=== PATIENT | female | born 1995 | race Caucasian/White ===

== ENCOUNTER 2016-09-11 07:02 | Day surgery (SDC) | payer OTHER ==
[2016-09-11 07:50] LABS: HEMOGLOBIN 13.5 gm/dl (12.3-15.3); RED BLOOD COUNT 4.47 M/UL (4.00-5.10); WHITE BLOOD COUNT 9.3 K/UL (4.5-11.0)
[2016-09-11] MEDS ORDERED: COLACE 100MG C100 MG PO (14:16)
[2016-09-11] MEDS ORDERED: NORCO 5-325 TA1 EACH PO (14:17)
[2016-09-11] MEDS ORDERED: IBUPROFEN600 MG PO (14:18)
== END 2016-09-11 14:33 | disposition home or self-care (01) ==
LOC: MED SURG 4 07:02 → OR 07:02 → MED SURG 4 07:27 → ZOBSOF 07:27 → MED SURG 4 07:27 → OR 14:33 → MED SURG 4 14:33 → EDSTATUS 09-13 10:04
PROVIDERS: Obstetrics & Gynecology
PROC: 10D17ZZ Extraction of Products of Conception, Retained, Via Natural or Artificial Opening (ICD-10-PCS; principal; 2016-09-11 10:00)
DX: O02.1 Missed abortion (principal); E66.9 Obesity, unspecified; Z98.818 Other dental procedure status; Z90.49 Acquired absence of other specified parts of digestive tract; Z80.9 Family history of malignant neoplasm, unspecified; Z83.49 Family history of other endocrine, nutritional and metabolic diseases; Z82.49 Family history of ischemic heart disease and other diseases of the circulatory system; Z83.3 Family history of diabetes mellitus; Z80.1 Family history of malignant neoplasm of trachea, bronchus and lung
CPT/HCPCS: 0; 36415; 81001; 85025; G0378; G0379; J1100; J1885; J2250; J2405; J2795; J3010; J7030

== ENCOUNTER 2020-08-12 17:06 | Emergency (ER) | payer BC, OTHER ==
[~2020-08-12 17:06] MED LIST: COLACE 100MG C100 MG PO; IBUPROFEN600 MG PO; NORCO 5-325 TA1 EACH PO
== END 2020-08-12 22:15 | disposition home or self-care (01) ==
LOC: ER1 17:06
DX: O99.891 Other specified diseases and conditions complicating pregnancy (principal); M79.661 Pain in right lower leg; O99.331 Smoking (tobacco) complicating pregnancy, first trimester; F17.200 Nicotine dependence, unspecified, uncomplicated; Z3A.08 8 weeks gestation of pregnancy
CPT/HCPCS: 85379; 93971; 99284

== ENCOUNTER → 2021-03-13 | Outpatient (CLI) | payer BC, OTHER ==
[~2021-03-13] MED LIST changes: +PRENATAL TABLE1 EAC1 PO
== END ==
LOC: LBRF 16:36
DX: Z01.812 Encounter for preprocedural laboratory examination (principal); Z20.822 Contact with and (suspected) exposure to COVID-19
CPT/HCPCS: U0003

== ENCOUNTER 2021-03-15 17:11 | Inpatient (IN) | payer BC, OTHER ==
[~2021-03-15] VITALS: Ht 167.6 cm; Wt 135.2 kg
[~2021-03-15 17:11] MED LIST changes: -PRENATAL TABLE1 EAC1 PO
[2021-03-15 18:07] LABS: HEMOGLOBIN 11.1 gm/dl (12.3-15.3); RED BLOOD COUNT 3.71 M/UL (4.00-5.10)
[2021-03-16] MEDS ORDERED: PRENATAL TABLE1 EAC1 PO (00:23)
[2021-03-17 06:31] LABS: HEMOGLOBIN 10.2 gm/dl (12.3-15.3)
== END 2021-03-18 15:24 | disposition home or self-care (01) | DRG 807 ==
LOC: GENOP 17:11 → OB 17:23
PROVIDERS: Obstetrics & Gynecology; ADMIT Obstetrics & Gynecology
PROC: 10E0XZZ Delivery of Products of Conception, External Approach (ICD-10-PCS; principal; 2021-03-15)
PROC: 10907ZC Drainage of Amniotic Fluid, Therapeutic from Products of Conception, Via Natural or Artificial Opening (ICD-10-PCS; 2021-03-15)
PROC: 3E033VJ Introduction of Other Hormone into Peripheral Vein, Percutaneous Approach (ICD-10-PCS; 2021-03-15)
PROC: 4A1HXCZ Monitoring of Products of Conception, Cardiac Rate, External Approach (ICD-10-PCS; 2021-03-15)
DX: O99.214 Obesity complicating childbirth (principal); Z37.0 Single live birth; Z3A.39 39 weeks gestation of pregnancy; Z90.49 Acquired absence of other specified parts of digestive tract; Z20.822 Contact with and (suspected) exposure to COVID-19
CPT/HCPCS: 36415; 51702; 81001; 82800; 85014; 85018; 85025; 87086; 90715; J2405; J2590; J7120; U0003